=== PATIENT | female | born 1965 | race American Indian/Alaskan Native ===

== ENCOUNTER 2017-02-04 09:14 | Emergency (ER) | payer SELFPAY ==
[2017-02-04 09:34] VITALS: BP 166/100
== END 2017-02-04 10:30 | disposition left against medical advice (07) ==
LOC: ED 09:14
DX: Z76.0 Encounter for issue of repeat prescription (principal); I10 Essential (primary) hypertension; Z53.21 Procedure and treatment not carried out due to patient leaving prior to being seen by health care provider